=== PATIENT | female | born 1970 | race Caucasian/White ===

== ENCOUNTER 2022-05-19 21:47 | Emergency (ER) | payer BC ==
[2022-05-19] MEDS ORDERED: Ondansetron 4 MG/2 ML SDV IVPUSH ONE (23:08)
[2022-05-19] MEDS ORDERED: Sodium Chloride 0.9% 1,000 ML IV ONE (23:08)
[2022-05-19] MEDS ORDERED: Morphine 4 MG/ML Syringe IVPUSH ONE (23:08)
[2022-05-20 00:17] LABS: CARBON DIOXIDE,CO2 20.5 mmol/L (21.0-32.0)
[2022-05-20] MEDS ORDERED: Potassium Chloride 20 MEQ in Premix Bag 1 BAG IV ONE ×2 (00:27→01:00)
[2022-05-20] MEDS ORDERED: Magnesium Sulfate/Water 2 GM in Premix Bag 1 BAG IV ONE (00:27)
[2022-05-20] MEDS ORDERED: Sodium Chloride 0.9% 250 ML IV PRN (00:30)
[2022-05-20] MEDS ORDERED: Sodium Chloride 0.9% 1,000 ML IV ONE (00:33)
[2022-05-20] MEDS ORDERED: Piperacillin/Tazobactam 4.5 GM in Sodium Chloride 0.9% 100 ML IV ONE (00:33)
[2022-05-20] MEDS ORDERED: HYDROmorphone 1 MG/ML Syringe IVPUSH ONE (03:03)
== END 2022-05-20 04:36 ==
LOC: MW.ED 21:47
DX: K43.6 Other and unspecified ventral hernia with obstruction, without gangrene (principal); E03.9 Hypothyroidism, unspecified; Z88.2 Allergy status to sulfonamides; Z20.822 Contact with and (suspected) exposure to COVID-19
CPT/HCPCS: 36415; 74176; 80053; 83605; 83690; 83735; 84703; 85025; 87635; 96361; 96365; 96366; 96367; 96368; 96375; 99285; J1170; J2270; J2405; J2543; J3475; J3480; J7030; J7050; 99284; U0002